=== PATIENT | female | born 1995 | race Caucasian/White ===

== ENCOUNTER 2018-08-20 06:32 | Inpatient (IN) | payer OTHER ==
[2018-08-20] MEDS: Lactated Ringer's 1,000 ML IV SCH ×3 (07:09→19:40)
[2018-08-20 07:53] VITALS: BMI 34.0
[2018-08-20] MEDS ORDERED: Carboprost 250 MCG/ML AMP IM PRN (08:17)
[2018-08-20] MEDS ORDERED: Ibuprofen 800 MG TAB PO PRN (08:17)
[2018-08-20] MEDS ORDERED: Promethazine HCl 25 MG/ML VIAL IM PRN ×2 (08:17→17:49)
[2018-08-20] MEDS ORDERED: Misoprostol 200 MCG TAB PR PRN (08:17)
[2018-08-20] MEDS ORDERED: Ondansetron PF 4 MG/2 ML Vial IVP PRN ×2 (08:17→17:49)
[2018-08-20] MEDS ORDERED: Methylergonovine 0.2 MG/ML VIAL IM PRN (08:17)
[2018-08-20] MEDS ORDERED: Diphenoxylate HCl/Atropine Tablet PO PRN ×2 (08:17)
[2018-08-20] MEDS ORDERED: Lidocaine 1% (PF) 30 ML VIAL SC PRN (08:17)
[2018-08-20] MEDS ORDERED: Butorphanol Tartrate 1 MG/ML VIAL SLOW IVP PRN (08:17)
[2018-08-20] MEDS ORDERED: HYDROcodone/Acetaminophen 5/325 mg Tablet PO PRN ×2 (08:17)
--- NOTE | 2018-08-20 08:24 | PDOC.LDHP ---
Labor and Delivery H&P Chief complaint: other (elective IOL) HPI: Arrived this morning for IOL . Was having cramping over night from dilation sticks. +Fm. Denies vb, lof. Current gestational age (weeks): 39 Due date: 08/22/18 Dating criteria: last menstrual period Grav: 1 Para: 0 Current complications: other ( macrosomia. EFW 4500gms at 38weeks.) Current medications: pre- vitamins Previous surgical history: other Allergies/Adverse Reactions: Allergies Allergy/AdvReac Type Severity Reaction Status Date / Time tramadol AdvReac Verified 08/20/18 07:42 Social history: none - Physical Exam Vital signs reviewed and normal: yes General: NAD Heart: RRR Abdomen: gravid FHT: category 1 - Vaginal Exam cm dilated: 5 Effacement: 75% Station: -3 - OB Labs Blood type: B RH: positive Antibody Screen: negative HIV: negative RPR: negative HEPSAg: negative 1 hour GCT: positive 3 hour GTT: passed GBS: negative Urine drug screen: negative Rubella: immune - Assessment L&D Assessment: elective induction at term - Plan Plan: admit to L&D, other (pitocin for augmentation)
[2018-08-20 08:34] LABS: Hemoglobin 12.6 g/dL (12.0-16.0); Mean Corpuscular HGB CONC 32.9 g/dL (32.0-36.0); Mean Corpuscular Hemoglobin 26.5 pg (27.0-31.0); Mean Corpuscular Volume 80.6 fL (78.0-98.0); Mean Platelet Volume 9.7 fL (7.4-10.4); Platelet Count 194 thou/uL (130-400); RBC Distribution Width 14.8 % (11.5-14.5); Red Blood Cell (RBC) Count 4.76 mill/uL (4.20-5.40); White Blood Cell (WBC) Count 9.6 thou/uL (4.8-10.8)
[2018-08-20] MEDS: NS w/ Oxytocin 10 units 500 ML IV SCH ×2 (08:37→20:03)
[2018-08-20] MEDS ORDERED: NS w/ Oxytocin 10 units 500 ML ONE (08:58)
[2018-08-20 09:11] LABS: HBSAg Index 0.28 S/CO (0-0.99); Hep B Surf Ag Non-Reactive S/CO (NonReactive); Syphilis Antibody Nonreactive (Nonreactive); Syphilis Antibody Index 0.05 S/CO (<1.00 Non-Reactive)
--- NOTE | 2018-08-20 13:24 | PDOC.LDPN ---
Labor & Delivery Progress Note - Subjective Subjective: comfortable (reports some cramping like period cramps and some pressure in her hips.) - Objective General: breathing through contractions Uterine fundus: non tender Dilation: 5 Effacement: 75% Station: -3 FHT: category 1 (135 baselines, moderate variability, + Accels. ) [place] contractions every: q3 Resuscitative measures: maternal position change - Assessment (1) 39 weeks gestation of Code(s): Z3A.39 - 39 WEEKS GESTATION OF Current Visit: Yes Status : Acute -: will re-evaluated for AROM when fetus has descended.
--- NOTE | 2018-08-20 16:41 | PDOC.LDPN ---
Labor & Delivery Progress Note - Subjective Subjective: comfortable - Objective Vital signs reviewed and normal: yes General: NAD Uterine fundus: non tender Dilation: 6 Effacement: 75% Station: -3 FHT: category 1 AROM: clear fluid IUPC placed: yes - Assessment (1) 39 weeks gestation of Code(s): Z3A.39 - 39 WEEKS GESTATION OF Current Visit: Yes Status : Acute Plan: continue plan of care, pitocin for augmentation -: max pit of 30
[2018-08-20] MEDS ORDERED: Lidocaine 1.5%/Epinephrine 1:200,000 5 ML AMPUL IJ ONE (17:11)
[2018-08-20] MEDS ORDERED: Fentanyl 4 mcg/Bup 0.1% Cadd 100 ML ONE (17:11)
[2018-08-20] MEDS ORDERED: Fentanyl 100 MCG/2 ML VIAL ONE (17:23)
[2018-08-20] MEDS ORDERED: Eucerin (Mineral Oil/Petrolatum,White) 30 gm Jar TOP PRN (17:49)
[2018-08-20] MEDS ORDERED: ePHEDrine/0.9% NaCl/PF SYRINGE 50 mg/10 ml SLOW IVP PRN (17:49)
[2018-08-20] MEDS ORDERED: diphenhydrAMINE 50 MG/ML VIAL IVP PRN (17:49)
[2018-08-20] MEDS ORDERED: Lactated Ringer's 500 ML IV PRN (17:49)
[2018-08-20] MEDS ORDERED: Naloxone HCl 0.4 mg/ml Vial IVP PRN ×2 (17:49)
[2018-08-20] MEDS ORDERED: Acetaminophen 325 MG TAB PO PRN (17:49)
[2018-08-20] MEDS ORDERED: Communication Order-Pharmacy FS SCH (18:00)
[2018-08-20] MEDS ORDERED: Fentanyl 4 mcg/Bupivacaine 0.1% Cassette 100 ML EPIDURAL SCH (18:00)
[2018-08-21] MEDS ORDERED: Fentanyl 4 mcg/Bup 0.1% Cadd 100 ML ONE (00:42)
[2018-08-21] MEDS: Lactated Ringer's 1,000 ML IV SCH ×2 (00:47→06:30)
[2018-08-21] MEDS: NS / Oxytocin 40 units/1000ml 1,000 ML IV PRN ×2 (07:20→08:09)
--- NOTE | 2018-08-21 07:45 | PDOC.OPDEL ---
OB Operative/Delivery Note Delivery Dr/Surgeon: Rocío Hubbard Pre-Delivery Diagnosis: active labor Weeks gestation: 39 (6 days) Anesthesia: epidural - Findings A Sex: female Weight: 9 lb 12 oz - 1 min: 6 - 5 min: 8 - Additional Findings/Plan Placenta delivered: manual removal Repaired Obstetrical Laceration: 2nd degree Estimated blood loss: 200 Compilations/Other Findings: - nuchal cord times one - reduced without complications - body dystocia - slow to deliver after the shoulder. Cord immediately cut and clamped and infant taken tothe warmer. After 12 mins infant was grunting and NICU team called to room to evaluate. Post delivery plan: routine recovery
[2018-08-21] MEDS ORDERED: Milk Of Magnesia 30 ML UDCUP PO PRN (10:30)
[2018-08-21] MEDS ORDERED: Bisacodyl 10 MG SUPP PR PRN (10:30)
[2018-08-21] MEDS ORDERED: HYDROcodone/Acetaminophen 5/325 mg Tablet PO PRN ×2 (10:30)
[2018-08-21] MEDS ORDERED: Methylergonovine 0.2 MG/ML VIAL IM PRN (10:30)
[2018-08-21] MEDS ORDERED: Ondansetron PF 4 MG/2 ML Vial IVP PRN (10:30)
[2018-08-21] MEDS ORDERED: NS / Oxytocin 40 units/1000ml 1,000 ML IV SCH (10:30)
[2018-08-21] MEDS ORDERED: Benzocaine/Menthol 20-0.5% 60 ML CAN TOP PRN (10:30)
[2018-08-21] MEDS: Ibuprofen 800 MG TAB PO SCH ×2 (14:45→21:59)
[2018-08-21] MEDS: Ferrous Sulfate 325 MG TAB PO SCH (16:43)
[2018-08-21] MEDS: Docusate Calcium (SURFAK) 240 MG CAP PO SCH (21:59)
[2018-08-22] MEDS: Ibuprofen 800 MG TAB PO SCH ×3 (06:34→21:12)
[2018-08-22 06:57] LABS: Hemoglobin 12.5 g/dL (12.0-16.0); Mean Corpuscular HGB CONC 31.8 g/dL (32.0-36.0); Mean Corpuscular Hemoglobin 27.1 pg (27.0-31.0); Mean Corpuscular Volume 85.1 fL (78.0-98.0); Mean Platelet Volume 9.5 fL (7.4-10.4); Platelet Count 188 thou/uL (130-400); Red Blood Cell (RBC) Count 4.64 mill/uL (4.20-5.40); White Blood Cell (WBC) Count 15.8 thou/uL (4.8-10.8)
[2018-08-22] MEDS: Docusate Calcium (SURFAK) 240 MG CAP PO SCH ×2 (08:43→21:13)
[2018-08-22] MEDS: Prenatal Vitamin 1 TAB PO SCH (08:43)
[2018-08-22] MEDS: Ferrous Sulfate 325 MG TAB PO SCH ×2 (08:44→16:39)
[2018-08-22] MEDS ORDERED: Adacel (T-DAP) 0.5 ML SYRINGE IM ONE (09:00)
--- NOTE | 2018-08-23 00:36 | PDOC.PP ---
Post Progress Note Post Day #: 2 Subjective: Doing well. No new complaints.Would like to go home 08/23 at noon. PO intake tolerated: yes Flatus: yes Ambulation: yes Vital Signs (12 hours) Temp Pulse Resp BP Pulse Ox 08/22/18 20:32 98.4 F 85 18 119/77 99 Weight Weight 186 lb Blood Pressure reviewed for the last 24 hours and normal. - Physical Examination Abdominal: appropriately TTP Extremities: negative homans (B) Result Diagrams: 08/22/18 06:24 Additional Labs: Post Labs Blood Type B POSITIVE 08/20/18 07:09 Hep Bs Antigen Non-Reactive S/CO (NonReactive) 08/20/18 07:09 (1) (spontaneous vaginal delivery) Code(s): O80 - ENCOUNTER FOR FULL-TERM UNCOMPLICATED DELIVERY Status: Acute - Assessment/Plan Assessment: patient s/p 08/21 , doing well Plan: 1. Anticipated discharge 08/23 noon (today) 2. Home with Motrin 3. Follow up 2-4 weeks post
--- NOTE | 2018-08-23 00:38 | PDOC.PP ---
Post Progress Note Post Day #: 1 Subjective: patient is doing well. Very sore nipple from feeding. PO intake tolerated: yes Flatus: yes Ambulation: yes Vital Signs (12 hours) Temp Pulse Resp BP Pulse Ox 08/22/18 20:32 98.4 F 85 18 119/77 99 Weight Weight 186 lb - Physical Examination General: NAD Cardiovascular: no m/r/g, RRR Respiratory: clear to auscultation bilaterally, non-labored breathing Abdominal: + bowel sounds, lochia (minimal) Fundus firm & at: deviated to right at Umbilicus Extremities: negative homans (B) Neurological: no gross focal deficits Psychiatric: A&Ox3, normal affect Result Diagrams: 08/22/18 06:24 Additional Labs: Post Labs Blood Type B POSITIVE 08/20/18 07:09 Hep Bs Antigen Non-Reactive S/CO (NonReactive) 08/20/18 07:09 (1) 39 weeks gestation of Code(s): Z3A.39 - 39 WEEKS GESTATION OF Status: Acute - Assessment/Plan A: G1 now P1 SP complicated by 2nd degree. P: Assistance with at bedside - inst to use hydrogel pads for nipple healing Discharge home tomorrow if pt status is stable and is discharged
[2018-08-23] MEDS: Ibuprofen 800 MG TAB PO SCH (05:35)
[2018-08-23] MEDS: Ferrous Sulfate 325 MG TAB PO SCH (08:20)
[2018-08-23 09:03] VITALS: BP 120/75; TEMP 97.8
[2018-08-23] MEDS: Prenatal Vitamin 1 TAB PO SCH (11:05)
[2018-08-23] MEDS: Docusate Calcium (SURFAK) 240 MG CAP PO SCH (11:06)
== END 2018-08-23 13:58 | disposition home or self-care (01) | DRG 807 ==
LOC: L&D 06:32 → 3SW 08-21 15:15 → EDSTATUS 08-22 15:11
PROVIDERS: ADMIT Obstetrics & Gynecology; ATTEND Obstetrics & Gynecology
PROC: 10E0XZZ Delivery of Products of Conception, External Approach (ICD-10-PCS; principal; 2018-08-21)
PROC: 0KQM0ZZ Repair Perineum Muscle, Open Approach (ICD-10-PCS; 2018-08-21)
PROC: 3E033VJ Introduction of Other Hormone into Peripheral Vein, Percutaneous Approach (ICD-10-PCS; 2018-08-21)
DX: O36.63X0 Maternal care for excessive fetal growth, third trimester, not applicable or unspecified (principal); Z37.0 Single live birth; O66.9 Obstructed labor, unspecified; O70.1 Second degree perineal laceration during delivery; O69.81X0 Labor and delivery complicated by cord around neck, without compression, not applicable or unspecified; Z3A.39 39 weeks gestation of pregnancy; Z88.6 Allergy status to analgesic agent; O77.0 Labor and delivery complicated by meconium in amniotic fluid
CPT/HCPCS: 36415; 51702; 85027; 86780; 86850; 86900; 86901; 87340; 90715; J2001; J2405; J3010; J3490